=== PATIENT | male | born 1985 | race Caucasian/White ===

== ENCOUNTER 2018-07-30 18:00 | Emergency (ER) | payer MEDICAID ==
[2018-07-30] MEDS: ACETAMINOPHEN 325 MG TAB PO (19:08)
[2018-07-30 19:39] LABS: ADD UMIC NO; UR ASCORBIC ACID NEGATIVE (NEGATIVE); UR BILIRUBIN (Dip) NEGATIVE (NEGATIVE); UR BLOOD (Dip) NEGATIVE (NEGATIVE); UR CLARITY CLEAR (CLEAR); UR COLOR STRAW (YELLOW); UR GLUCOSE (Dip) NEGATIVE (NEGATIVE); UR KETONES (Dip) NEGATIVE (NEGATIVE); UR LEUKOCYTE ESTERASE (Dip) NEGATIVE Leu/ul (NEGATIVE); UR NITRITE (Dip) NEGATIVE (NEGATIVE); UR SPECIFIC GRAVITY (Dip) 1.011 (1.003-1.030); UR TOTAL PROTEIN (Dip) NEGATIVE (NEGATIVE); UR UROBILINOGEN (Dip) NEGATIVE (NEGATIVE)
== END 2018-07-30 20:48 | disposition home or self-care (01) ==
LOC: FTE 18:00
DX: R10.32 Left lower quadrant pain (principal)
CPT/HCPCS: 74176; 81003; 99284-25